=== PATIENT | male | born 1980 | race American Indian/Alaskan Native ===

== ENCOUNTER 2017-03-29 02:07 | Emergency (ER) | payer OTHER ==
[2017-03-29 02:19] VITALS: O2SAT 97
--- NOTE | 2017-03-29 02:47 | C.PDOC ---
History Of Present Illness Patient is a 36 y/o male brought to the ED by ambulance after being found sleeping outside. Patient admits to alcohol use today. Patient complaints of chronic left ankle pain, and states he [place] [facility] [place] Otherwise, denies any injury, trauma, weakness, numbness , or any other physical complaints at this time. Time Seen by Provider: 03/29/17 02:25 Chief Complaint (Nursing): Substance Abuse History Per: Patient History/Exam Limitations: no limitations Current Symptoms Are (Timing): Still Present Recent travel outside of the [place]: No Additional History Per: Patient, EMS Past Medical History Reviewed: Historical Data, Nursing Documentation, Vital Signs Vital Signs: Last Vital Signs Temp 98.3 F 03/29/17 05:34 Pulse 70 03/29/17 05:34 Resp 70 H 03/29/17 05:34 BP 139/83 03/29/17 05:34 Pulse Ox 97 03/29/17 05:34 Family History: States: Unknown Family Hx - Social History Hx Alcohol Use: Yes Hx Substance Use: No - Immunization History Hx Tetanus Toxoid Vaccination: No Hx Influenza Vaccination: No Hx Pneumococcal Vaccination: No Review Of Systems Except As Marked, All Systems Reviewed And Found Negative. Constitutional: Negative for: Fever, Chills Musculoskeletal: Positive for: Foot Pain (left ankle pain) Neurological: Negative for: Weakness, Numbness Psych: Negative for: Suicidal ideation Physical Exam - Physical Exam Appears: Non-toxic, No Acute Distress, Unkempt, Other (no signs of injury) Skin: Warm, Dry, Other (multiple scars to left ankle) Head: Atraumatic, Normacephalic Eye(s): bilateral: Normal Inspection Neck: Normal ROM, Supple Chest: Symmetrical Cardiovascular: Rhythm Regular, No Murmur Respiratory: Normal Breath Sounds, No Rales, No Rhonchi, No Wheezing Extremity: Normal ROM, Tenderness (mild tenderness to left ankle upon light palpation), Capillary Refill (< 2 sec.), No Deformity, No Swelling Pulses: Left Dorsalis Pedis: Normal, Right Dorsalis Pedis: Normal Neurological/Psych: Oriented x3, Normal Speech, Normal Cognition, Normal Motor, Normal Sensation ED Course And Treatment O2 Sat by Pulse Oximetry: 97 (on RA) Pulse Ox Interpretation: Normal Progress Note: Patient requesting percocet for pain. On reassessment, patient is resting comfortably, no acute distress. Patient reports mild improvement of pain. Patient ambulatory with steady gait Medical Decision Making Medical Decision Making: PRAVINRx Reviewed 01/30/2017 OXYCODONE-ACETAMINOPHEN 5-325 16 10/25/2016 OXYCODONE-ACETAMINOPHEN 5-325 20 10/19/2016 OXYCODONE-ACETAMINOPHEN 5-325 45 09/28/2016 OXYCODONE-ACETAMINOPHEN 5-325 45 Disposition Counseled Patient/Family Regarding: Diagnosis, Need For Followup - Disposition Referrals: Migdalia Archer MD [Non-Staff] - Disposition: HOME/ ROUTINE Disposition Time: 06:00 Condition: STABLE Instructions: Chronic Pain (DC) - POA Present On Arrival: None - Clinical Impression Clinical Impression: Chronic leg pain, Alcohol intoxication - PA / DESIGN SUPERVISOR / Resident Statement MD/DO has reviewed & agrees with the documentation as recorded. - Scribe Statement The provider has reviewed the documentation as recorded by the Scribe Shai Torres All medical record entries made by the Scribe were at my direction and personally dictated by me. I have reviewed the chart and agree that the record accurately reflects my personal performance of the history, physical exam, medical decision making, and the department course for this patient. I have also personally directed, reviewed, and agree with the discharge instructions and disposition.
[2017-03-29] MEDS ORDERED: Oxycodone/Acetaminophen 5/325 mg Tab PO STA (02:49)
[2017-03-29] MEDS ORDERED: Oxycodone/Acetaminophen 5/325 mg Tab ONE (02:57)
[2017-03-29 05:36] VITALS: BP 139/83; PULSE 70; RESP 70; TEMP 98.3
== END 2017-03-29 06:07 | disposition home or self-care (01) ==
LOC: C.ER 02:07
DX: G89.29 Other chronic pain (principal); M25.572 Pain in left ankle and joints of left foot; F10.129 Alcohol abuse with intoxication, unspecified; Y90.9 Presence of alcohol in blood, level not specified

== ENCOUNTER 2017-05-04 01:42 | Emergency (ER) | payer OTHER ==
--- NOTE | 2017-05-04 02:09 | C.PDOC ---
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 Patient was found sleeping on a bench near the [place]. Admits to drinking alcohol and taking PCP. Denies suicidal, homicidal ideation, or any somatic complaints. Time Seen by Provider: 05/04/17 02:08 Chief Complaint (Nursing): Substance Abuse History Per: Patient History/Exam Limitations: no limitations Onset/Duration Of Symptoms: Hrs Current Symptoms Are (Timing): Still Present Suicide/Self Injury Attempted (Context): None Modifying Factor(s): Alcohol, Other (PCP) Severity: Mild Associated Symptoms: denies: Suicidal Thoughts, Suicidal Plan Involuntary Hold By: None Recent travel outside of the [place]: No Additional History Per: Patient Past Medical History Reviewed: Historical Data, Nursing Documentation, Vital Signs Vital Signs: Last Vital Signs Temp 98.4 F 05/04/17 05:30 Pulse 75 05/04/17 05:24 Resp 18 05/04/17 05:24 BP 136/79 05/04/17 05:24 Pulse Ox 98 05/04/17 05:24 Family History: States: Unknown Family Hx - Social History Hx Alcohol Use: Yes Hx Substance Use: No - Immunization History Hx Tetanus Toxoid Vaccination: No Hx Influenza Vaccination: No Hx Pneumococcal Vaccination: No Review Of Systems Constitutional: Positive for: Other (Alcohol intoxication, PCP use). Negative for: Fever, Chills Eyes: Negative for: Vision Change ENT: Negative for: Throat Pain Cardiovascular: Negative for: Chest Pain, Palpitations Respiratory: Negative for: Shortness of Breath Gastrointestinal: Negative for: Abdominal Pain Genitourinary: Negative for: Dysuria Skin: Negative for: Rash Neurological: Negative for: Weakness, Numbness Psych: Negative for: Suicidal ideation, Other (Homicidal ideation) Physical Exam - Physical Exam Appears: Non-toxic, No Acute Distress, Other (Alcohol intoxicated, (+) AOB) Skin: Warm, Dry Head: Normacephalic Oral Mucosa: Moist Throat: No Erythema, No Exudate Neck: Supple Cardiovascular: Rhythm Regular Respiratory: No Rales, No Rhonchi, No Wheezing Gastrointestinal/Abdominal: Soft, No Tenderness Back: No CVA Tenderness Neurological/Psych: Oriented x3, No Normal Speech (SLurred) Gait: Unsteady ED Course And Treatment O2 Sat by Pulse Oximetry: 98 (RA) Pulse Ox Interpretation: Normal Reevaluation Time: 05:34 Reassessment Condition: Improved ED OBSERVATION Discharge: Yes Date of observation admission: 05/04/17 Time of observation admission: 02:16 - Observation admission statement Patient is being placed in observation because:: Acute alcohol intoxication - Goals of Observation Goals of observation are:: Sobriety Disposition Counseled Patient/Family Regarding: Studies Performed, Diagnosis, Need For Followup - Disposition Referrals: [facility] [Outside] Disposition: HOME/ ROUTINE Disposition Time: 02:09 Condition: FAIR Instructions: Alcohol Intoxication (DC) Forms: [employer] (Croatian) - Clinical Impression Clinical Impression: Drug abuse, Alcohol intoxication - Scribe Statement The provider has reviewed the documentation as recorded by the Scribe Blu moreno All medical record entries made by the Scribe were at my direction and personally dictated by me. I have reviewed the chart and agree that the record accurately reflects my personal performance of the history, physical exam, medical decision making, and the department course for this patient. I have also personally directed, reviewed, and agree with the discharge instructions and disposition.
[2017-05-04 03:24] VITALS: RESP 18
[2017-05-04 05:25] VITALS: BP 136/79; PULSE 75; O2SAT 98
[2017-05-04 05:31] VITALS: TEMP 98.4
== END 2017-05-04 05:31 | disposition home or self-care (01) ==
LOC: C.ER 01:42
DX: F10.120 Alcohol abuse with intoxication, uncomplicated (principal); F19.10 Other psychoactive substance abuse, uncomplicated; Y90.9 Presence of alcohol in blood, level not specified

== ENCOUNTER 2017-05-13 01:10 | Observation (INO) | payer OTHER ==
--- NOTE | 2017-05-13 01:38 | C.PDOC ---
History Of Present Illness 31 year old male was brought to the ED by EMS after being found lying on the ground with a bottle of liquor next to him. HPI is limited due to patient's refusal to answer questions. Time Seen by Provider: 05/13/17 01:28 Chief Complaint (Nursing): Substance Abuse History Per: EMS History/Exam Limitations: other (patient refusing to answer questions ) Suicide/Self Injury Attempted (Context): None Modifying Factor(s): Alcohol Involuntary Hold By: None Past Medical History Reviewed: Historical Data, Nursing Documentation, Vital Signs Vital Signs: Last Vital Signs Temp 97.1 F L 05/13/17 06:29 Pulse 86 05/13/17 06:29 Resp 20 05/13/17 06:29 BP 158/72 H 05/13/17 06:29 Pulse Ox 98 05/13/17 06:29 Family History: States: Unknown Family Hx - Social History Hx Alcohol Use: Yes Hx Substance Use: No (unknown, pt refuses to answer) Review Of Systems Review Of Systems: ROS cannot be obtained secondary to pt's inabilty to answer questions. (patient refusing to answer questions) Physical Exam - Physical Exam Appears: Non-toxic, No Acute Distress, Unkempt Skin: Warm, Dry Head: Atraumatic Eye(s): bilateral: Normal Inspection Oral Mucosa: Moist Neck: Supple Chest: Symmetrical, No Deformity Cardiovascular: Rhythm Regular Respiratory: Normal Breath Sounds, No Rales, No Rhonchi, No Wheezing Gastrointestinal/Abdominal: Soft, No Tenderness, No Distention, No Guarding, No Rebound Neurological/Psych: Normal Speech ED Course And Treatment O2 Sat by Pulse Oximetry: 100 (room air ) ED OBSERVATION Discharge: Yes Date of observation admission: 05/13/17 Time of observation admission: 01:36 - Observation admission statement Patient is being placed in observation because:: patient is intoxicated. - Goals of Observation Goals of observation are:: sobriety. Disposition - Disposition Disposition: HOME/ ROUTINE Disposition Time: 05:45 Condition: IMPROVED - Clinical Impression Clinical Impression: Alcohol abuse - Scribe Statement The provider has reviewed the documentation as recorded by the Scribe Gisselle Sow All medical record entries made by the Scribe were at my direction and personally dictated by me. I have reviewed the chart and agree that the record accurately reflects my personal performance of the history, physical exam, medical decision making, and the department course for this patient. I have also personally directed, reviewed, and agree with the discharge instructions and disposition.
[2017-05-13 06:30] VITALS: BP 158/72; PULSE 86; RESP 20; TEMP 97.1
[2017-05-13 06:41] VITALS: O2SAT 100
== END 2017-05-13 06:24 | disposition home or self-care (01) ==
LOC: C.ER 01:10 → MERGE 01:36 → EDBD 01:36 → C.9OBSV 01:36
PROVIDERS: ADMIT Emergency Medicine; ATTEND Emergency Medicine
DX: F10.129 Alcohol abuse with intoxication, unspecified (principal)

== ENCOUNTER 2017-06-11 01:10 | Emergency (ER) | payer OTHER ==
[2017-06-11 01:33] VITALS: BP 156/97
--- NOTE | 2017-06-11 01:55 | C.PDOC ---
History Of Present Illness 36 year old male, who is a known local homeless alcoholic, presents to the ER with acute ETOH intoxication and no significant complaint. Denies physical complaints at this time. Time Seen by Provider: 06/11/17 01:53 Chief Complaint (Nursing): Lower Extremity Problem/Injury History Per: Patient History/Exam Limitations: no limitations Onset/Duration Of Symptoms: Hrs Current Symptoms Are (Timing): Still Present Recent travel outside of the [place]: No Past Medical History Reviewed: Historical Data, Nursing Documentation, Vital Signs Vital Signs: Last Vital Signs Temp 98 F 06/11/17 02:00 Pulse 72 06/11/17 02:00 Resp 16 06/11/17 02:00 BP 156/97 H 06/11/17 02:00 Pulse Ox 100 06/11/17 02:00 - Medical History PMH: No Chronic Diseases Surgical History: No Surg Hx Family History: States: Unknown Family Hx - Social History Hx Alcohol Use: Yes Hx Substance Use: No - Immunization History Hx Tetanus Toxoid Vaccination: No Hx Influenza Vaccination: No Hx Pneumococcal Vaccination: No Review Of Systems Constitutional: Negative for: Fever, Chills Gastrointestinal: Negative for: Nausea, Vomiting, Diarrhea Physical Exam - Physical Exam Appears: Non-toxic, No Acute Distress, Other (ETOH on breath, disheveled, foul smelling, argumentative) Skin: Normal Color, Warm, Dry Head: Atraumatic, Normacephalic Oral Mucosa: Moist Chest: Symmetrical, No Tenderness Cardiovascular: Rhythm Regular, No Murmur Respiratory: Normal Breath Sounds, No Rales, No Rhonchi, No Wheezing Gastrointestinal/Abdominal: Soft, No Tenderness Extremity: Normal ROM (x4) Neurological/Psych: Oriented x3, Normal Speech, Normal Cognition Gait: Steady ED Course And Treatment O2 Sat by Pulse Oximetry: 98 (Room air) Pulse Ox Interpretation: Normal Medical Decision Making Medical Decision Making: homeless malingering no acute issues benign exam Disposition Doctor Will See Patient In The: Office Counseled Patient/Family Regarding: Studies Performed, Diagnosis - Disposition Referrals: Alcoholics Anonymous [Outside] [facility] [Outside] [facility] [Outside] [facility] [Outside] [facility] [Outside] Disposition: HOME/ ROUTINE Disposition Time: 01:54 Condition: GOOD Additional Instructions: seek nightly fpc placement. Forms: General Discharge Instructions, [facility] (Burmese) - Clinical Impression Clinical Impression: Alcohol intoxication, Homeless - Scribe Statement The provider has reviewed the documentation as recorded by the Scribe Devin Balbuena All medical record entries made by the Jenniferibe were at my direction and personally dictated by me. I have reviewed the chart and agree that the record accurately reflects my personal performance of the history, physical exam, medical decision making, and the department course for this patient. I have also personally directed, reviewed, and agree with the discharge instructions and disposition.
[2017-06-11 02:33] VITALS: PULSE 72; RESP 16; TEMP 98
[2017-06-11 05:23] VITALS: O2SAT 98
== END 2017-06-11 02:00 | disposition home or self-care (01) ==
LOC: C.ER 01:10
DX: F10.129 Alcohol abuse with intoxication, unspecified (principal); Y90.9 Presence of alcohol in blood, level not specified; Z59.0 Homelessness

== ENCOUNTER 2017-10-22 20:43 | Emergency (ER) | payer MEDICAID, OTHER ==
[2017-10-22 22:21] LABS: BASO % 0.5 % (0.0-2.0); EOS # 0.1 K/uL (0.0-0.7); EOS % 0.9 % (0.0-4.0); HEMOGLOBIN 13.5 g/dL (12.0-18.0); LYMPH % 20.3 % (20.0-40.0); MEAN CELL VOLUME 87.3 fL (80.0-94.0); MEAN CORPUSCULAR HEMOGLOBIN 29.5 pg (27.0-31.0); MEAN CORPUSCULAR HGB CONC 33.7 g/dL (33.0-37.0); MEAN PLATELET VOLUME 7.5 fL (7.2-11.7); MONO # 0.9 K/uL (0.0-0.8); MONO % 9.3 % (0.0-10.0); NEUT # 6.6 K/uL (1.8-7.0); NRBC % 0.1 % (0.0-2.0); RBC 4.56 Mil/uL (4.40-5.90); RED CELL DISTRIBUTION WIDTH 15.9 % (11.5-14.5); WHITE BLOOD COUNT 9.6 K/uL (4.8-10.8)
[2017-10-22 22:42] LABS: ALB/GLOB RATIO 1.1 (1.0-2.1); ALBUMIN 4.4 g/dL (3.5-5.0); ALT/SGPT 26 U/L (21-72); AST/SGOT 28 U/L (17-59); BLOOD UREA NITROGEN 11 mg/dL (9-20); CALCIUM 9.3 mg/dl (8.6-10.4); GFR AFRICAN-AMERICAN > 60; GFR NON-AFRICAN AMERICAN > 60
[2017-10-22 23:10] LABS: URINE BACTERIA RARE (<OCC); URINE BILIRUBIN NEGATIVE (NEGATIVE); URINE CLARITY Clear (Clear); URINE COLOR Straw (YELLOW); URINE GLUCOSE (UA) NORMAL (Normal); URINE LEUKOCYTE ESTERASE NEG Leu/uL (Negative); URINE NITRATE NEGATIVE (NEGATIVE); URINE PROTEIN NEGATIVE (NEGATIVE); URINE UROBILINOGEN NORMAL mg/dL (0.2-1.0)
[2017-10-22 23:11] LABS: URINE BLOOD NEGATIVE (NEGATIVE)
[2017-10-22 23:41] LABS: BARBITURATES, UR NEGATIVE (NEGATIVE); BENZODIAZEPINES, UR NEGATIVE (NEGATIVE); OPIATES, UR NEGATIVE (NEGATIVE)
--- NOTE | 2017-10-22 23:46 | C.PDOC ---
History Of Present Illness Pt was BIBEMS due to intoxication. Pt was found on the street by a [place] police not responding properly. Time Seen by Provider: 10/22/17 21:22 Chief Complaint (Nursing): Substance Abuse History Per: Patient, EMS, Other (Police) History/Exam Limitations: intoxication Onset/Duration Of Symptoms: Unknown (tonight) Current Symptoms Are (Timing): Better Suicide/Self Injury Attempted (Context): None Modifying Factor(s): Other (PCP) Severity: Moderate Associated Symptoms: denies: Suicidal Thoughts, Suicidal Plan Additional History Per: Prior Records Past Medical History Reviewed: Historical Data, Nursing Documentation, Vital Signs Vital Signs: Last Vital Signs Temp 98.8 F 10/23/17 00:12 Pulse 78 10/23/17 00:12 Resp 20 10/23/17 00:12 BP 182/110 H 10/23/17 00:12 Pulse Ox 100 10/23/17 00:12 - Medical History PMH: No Chronic Diseases Family History: States: Unknown Family Hx - Social History Hx Alcohol Use: Yes Hx Substance Use: Yes (PCP) - Immunization History Hx Tetanus Toxoid Vaccination: No Hx Influenza Vaccination: No Hx Pneumococcal Vaccination: No Review Of Systems Constitutional: Negative for: Fever Cardiovascular: Negative for: Chest Pain Respiratory: Negative for: Shortness of Breath, Hemoptysis Gastrointestinal: Negative for: Vomiting, Abdominal Pain Musculoskeletal: Negative for: Neck Pain Skin: Negative for: Rash Neurological: Negative for: Weakness, Numbness, Seizures, Headache Physical Exam - Physical Exam Appears: Non-toxic, No Acute Distress Skin: Normal Color, Warm, Dry Head: Atraumatic, Normacephalic Eye(s): bilateral: PERRL, Other (Vertical nystagmus) Neck: Normal ROM, No Midline Cervical Tenderness, No Step Off Deformity, Supple Chest: Symmetrical, No Deformity Cardiovascular: Rhythm Regular Respiratory: Normal Breath Sounds, No Accessory Muscle Use Gastrointestinal/Abdominal: Soft, No Tenderness Back: No Vertebral Tenderness Extremity: Normal ROM Neurological/Psych: Oriented x3, Normal Motor, Normal Sensation ED Course And Treatment - Laboratory Results Result Diagrams: 10/22/17 22:13 10/22/17 22:13 Lab Interpretation: No Acute Changes Interpretation Of Abnormal: Positive for PCP ECG: Interpreted By Me, Viewed By Me ECG Rhythm: Sinus Rhythm, Nonspecific Changes ECG Interpretation: No Acute Changes Rate From EC O2 Sat by Pulse Oximetry: 98 Pulse Ox Interpretation: Normal - Radiology CXR: Interpreted by Me, Viewed By Me CXR Interpretation: Yes: No Acute Disease Reassessment Condition: Improved Disposition Counseled Patient/Family Regarding: Studies Performed, Diagnosis, Need For Followup - Disposition Referrals: [facility] [Outside] Disposition: RELEASED IN POLICE CUSTODY Disposition Time: 00:16 Condition: IMPROVED Additional Instructions: Patient is medically and psychiatrically cleared for incarceration. Avoid illicit drugs. Follow up in the clinic. Return to the ER if you develop worsening of symptoms or if you have any other concerns. Instructions: Polysubstance Abuse (ED) - Clinical Impression Clinical Impression: PCP (phencyclidine) abuse
[2017-10-23 00:08] LABS: PHENCYCLIDINE, UR POSITIVE (NEGATIVE)
[2017-10-23 00:12] VITALS: BP 182/110; PULSE 78; RESP 20; TEMP 98.8
[2017-10-23 00:16] VITALS: O2SAT 98
--- NOTE | 2017-10-23 08:28 | RAD ---
Chest x-ray single frontal view History: Detox Comparison: None available. Findings: No focal infiltrate or effusion. Tortuous aorta. Heart size within normal limits. Impression: No focal infiltrate or effusion.
--- NOTE | 2017-10-23 11:56 | CARD ---
APPROVED REPORT EKG Measurement Heart [id number] <Conclusion> Normal sinus rhythm Normal ECG
== END 2017-10-23 00:48 ==
LOC: C.ER 20:43
DX: F16.10 Hallucinogen abuse, uncomplicated (principal); Z65.3 Problems related to other legal circumstances

== ENCOUNTER 2018-06-09 02:16 | Emergency (ER) | payer MEDICAID | END 2018-06-09 02:21 | disposition left against medical advice (07) | LOC: C.ER 02:16 | DX: Z02.89 Encounter for other administrative examinations (principal) ==

== ENCOUNTER 2018-06-17 06:21 | Emergency (ER) | payer MEDICAID ==
[2018-06-17] MEDS ORDERED: Naproxen 550 mg Tab PO STA (07:37)
[2018-06-17] MEDS ORDERED: Naproxen 550 mg Tab PO ONE (08:11)
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
[2018-06-17 08:50] VITALS: BP 133/85; PULSE 75; RESP 18; TEMP 97.9
--- NOTE | 2018-06-17 13:50 | RAD ---
Date of service: 06/17/2018 PROCEDURE: Radiographs of the Chest and Right Ribs. HISTORY: right sided rib injury, pain COMPARISON: 10/22/2017. TECHNIQUE: Frontal radiograph of the chest and multiple oblique radiographs of the right ribs were obtained. FINDINGS: RIGHT RIBS: There are acute nondisplaced fractures in the right lateral 9th and 10th ribs. LUNGS: The lungs are well inflated and clear. PLEURA: No pneumothorax or pleural fluid. CARDIOVASCULAR: Normal sized heart. No pulmonary vascular congestion. OTHER FINDINGS: None. IMPRESSION: Acute nondisplaced fractures in the right lateral 9th and 10th ribs. No pneumothorax or hemothorax. Clear lungs.
[2018-06-20 02:21] VITALS: O2SAT 98
== END 2018-06-17 09:00 | disposition home or self-care (01) ==
LOC: C.ER 06:21
DX: S22.41XA Multiple fractures of ribs, right side, initial encounter for closed fracture (principal); Y09 Assault by unspecified means

== ENCOUNTER 2018-07-12 23:14 | Emergency (ER) | payer MEDICAID, OTHER ==
--- NOTE | 2018-07-13 00:50 | C.PDOC ---
History Of Present Illness 37 year old male presents to the emergency department by EMS. According to EMS, patient has rib pain. HPI unobtainable. Time Seen by Provider: 07/12/18 23:39 Chief Complaint (Nursing): Substance Abuse History Per: EMS History/Exam Limitations: other (patient sleeping) Past Medical History Reviewed: Historical Data, Nursing Documentation, Vital Signs Vital Signs: Last Vital Signs Temp 98.4 F 07/12/18 23:26 Pulse 87 07/12/18 23:26 Resp 18 07/12/18 23:26 BP 122/80 07/12/18 23:26 Pulse Ox 96 07/12/18 23:26 - Medical History PMH: HTN Denies: Diabetes, Hepatitis, HIV, Seizures, Sexually Transmitted Disease Family History: States: Unknown Family Hx - Social History Hx Alcohol Use: Yes Hx Substance Use: Yes (PCP) - Immunization History Hx Tetanus Toxoid Vaccination: No Hx Influenza Vaccination: No Hx Pneumococcal Vaccination: No Review Of Systems Review Of Systems: ROS cannot be obtained secondary to pt's inabilty to answer questions. Physical Exam - Physical Exam Additional Physical Exam Comments: Constitutional: No acute distress. Sleeping soundly. Snoring. Head: Normocephalic. Atraumatic. Eyes: PERRL. ENT: Moist mucous membranes. Neck: Supple. Cardiovascular: Regular rate. Radial pulse 2+ bilaterally. Chest: No tenderness. Respiratory: Clear to auscultation bilaterally. GI: Soft. Nontender. Nondistended. Back: No CVA tenderness. Musculoskeletal: No tenderness or swelling of extremities. Skin: No rash. Neurologic: No focal deficit. ED Course And Treatment O2 Sat by Pulse Oximetry: 96 (RA) Pulse Ox Interpretation: Normal Medical Decision Making Medical Decision Making: Plan: Alcohol Serum Previous charts reviewed, which showed that patient complains of rib pain at every ED visit. Patient had an XR performed one month ago which showed non- displaced rib fractures. Patient will be observed for sobriety. Disposition - Disposition Disposition: HOME/ ROUTINE Disposition Time: 02:01 Condition: STABLE Instructions: Alcohol Abuse and Alcoholism (DC), Rib Fracture (DC) Forms: [employer] (Uzbek) - Clinical Impression Clinical Impression: Alcohol intoxication, Rib fracture - Scribe Statement The provider has reviewed the documentation as recorded by the Scribe (Ranjit Prince) Provider Attestation: All medical record entries made by the Scribe were at my direction and personally dictated by me. I have reviewed the chart and agree that the record accurately reflects my personal performance of the history, physical exam, medical decision making, and the department course for this patient. I have also personally directed, reviewed, and agree with the discharge instructions and disposition.
[2018-07-13 02:32] VITALS: O2SAT 98
[2018-07-13 05:52] VITALS: BP 146/84; PULSE 84; RESP 16; TEMP 98.4
== END 2018-07-13 05:50 | disposition home or self-care (01) ==
LOC: C.ER 23:14
DX: F10.129 Alcohol abuse with intoxication, unspecified (principal); S22.39XA Fracture of one rib, unspecified side, initial encounter for closed fracture; X58.XXXA Exposure to other specified factors, initial encounter; I10 Essential (primary) hypertension

== ENCOUNTER 2018-07-30 05:26 | Emergency (ER) | payer MEDICAID ==
[2018-07-30 05:27] VITALS: BMI 27.1
[2018-07-30 05:37] VITALS: BP 148/98; PULSE 74; RESP 20; TEMP 98.7; O2SAT 98
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
== END 2018-07-30 06:45 | disposition home or self-care (01) ==
LOC: C.ER 05:26
DX: Z87.81 Personal history of (healed) traumatic fracture (principal); I10 Essential (primary) hypertension

== ENCOUNTER 2018-08-24 14:40 | Inpatient (IN) | payer MEDICAID ==
[2018-08-24 14:40] VITALS: BMI 30.8
[2018-08-24] MEDS ORDERED: Sodium Chloride 0.9% 1,000 ML IV ONE (17:07)
[2018-08-24] MEDS ORDERED: Sodium Chloride 0.9% 1,000 ML ONE (17:28)
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
--- NOTE | 2018-08-24 17:55 | RAD ---
Date of service: 08/24/2018 HISTORY: Sepsis Patient COMPARISON: 06/17/2018 FINDINGS: LUNGS: The lungs are well inflated. There is moderate pulmonary venous congestion. No focal consolidation. PLEURA: No pleural effusions or pneumothorax. CARDIOVASCULAR: The heart is normal in size. No aortic atherosclerotic calcification present. OSSEOUS STRUCTURES: Within normal limits for the patient's age. VISUALIZED UPPER ABDOMEN: Normal. OTHER FINDINGS: None. IMPRESSION: No active pulmonary disease.
[2018-08-24 18:12] LABS: BASO % 0.3 % (0.0-2.0); EOS # 0.2 K/uL (0.0-0.7); EOS % 1.8 % (0.0-4.0); LYMPH # 1.7 K/uL (1.0-4.3); LYMPH % 20.2 % (20.0-40.0); MEAN CORPUSCULAR HEMOGLOBIN 24.2 pg (27.0-31.0); MEAN CORPUSCULAR HGB CONC 31.1 g/dL (33.0-37.0); MEAN PLATELET VOLUME 7.1 fL (7.2-11.7); MONO # 1.4 K/uL (0.0-0.8); MONO % 15.6 % (0.0-10.0); NEUT # 5.4 K/uL (1.8-7.0); NEUT % 62.1 % (50.0-75.0); NRBC % 0.1 % (0.0-2.0); RBC 3.11 Mil/uL (4.40-5.90); RED CELL DISTRIBUTION WIDTH 15.8 % (11.5-14.5); WHITE BLOOD COUNT 8.7 K/uL (4.8-10.8)
[2018-08-24 18:20] LABS: HEMOGLOBIN 7.5 g/dL (12.0-18.0); MEAN CELL VOLUME 77.8 fL (80.0-94.0)
[2018-08-24 18:29] LABS: BARBITURATES, UR NEGATIVE (NEGATIVE); BENZODIAZEPINES, UR NEGATIVE (NEGATIVE); OPIATES, UR NEGATIVE (NEGATIVE)
[2018-08-24 18:40] LABS: PHENCYCLIDINE, UR POSITIVE (NEGATIVE)
[2018-08-24 18:41] LABS: URINE BACTERIA RARE (<OCC); URINE BILIRUBIN NEGATIVE (NEGATIVE); URINE BLOOD 1+ (NEGATIVE); URINE CLARITY Clear (Clear); URINE COLOR Yellow (YELLOW); URINE GLUCOSE (UA) NORMAL (Normal); URINE LEUKOCYTE ESTERASE NEG Leu/uL (Negative); URINE PROTEIN 1+ mg/dL (NEGATIVE); URINE UROBILINOGEN NORMAL mg/dL (0.2-1.0)
[2018-08-24 18:43] LABS: VENOUS BLOOD GAS PCO2 47 mmHg (40-60); VENOUS BLOOD GAS PO2 44 mm/Hg (30-55); VENOUS BLOOD PH 7.38 (7.32-7.43)
[2018-08-24] MEDS ORDERED: Bacitracin 500 Units/gm Oint Foilpak UD TOP ONE (18:45)
[2018-08-24] MEDS ORDERED: Bacitracin 500 Units/gm Oint Foilpak UD ONE (18:48)
[2018-08-24 19:19] LABS: HEMOGLOBIN 6.8 g/dL (12.0-18.0); MEAN CELL VOLUME 77.6 fL (80.0-94.0); MEAN CORPUSCULAR HEMOGLOBIN 24.3 pg (27.0-31.0); MEAN CORPUSCULAR HGB CONC 31.3 g/dL (33.0-37.0); MEAN PLATELET VOLUME 6.9 fL (7.2-11.7); RBC 2.81 Mil/uL (4.40-5.90); RED CELL DISTRIBUTION WIDTH 15.7 % (11.5-14.5); WHITE BLOOD COUNT 7.2 K/uL (4.8-10.8)
[2018-08-24 19:31] LABS: ALB/GLOB RATIO 0.8 (1.0-2.1); ALBUMIN 2.8 g/dL (3.5-5.0); ALT/SGPT 23 U/L (21-72); AST/SGOT 20 U/L (17-59); BLOOD UREA NITROGEN 10 mg/dL (9-20); CALCIUM 7.7 mg/dl (8.6-10.4); GFR NON-AFRICAN AMERICAN > 60
[2018-08-24 20:47] LABS: BASO % 0.2 % (0.0-2.0); EOS # 0.1 K/uL (0.0-0.7); EOS % 2.1 % (0.0-4.0); HEMOGLOBIN 6.8 g/dL (12.0-18.0); LYMPH # 1.9 K/uL (1.0-4.3); LYMPH % 26.5 % (20.0-40.0); MEAN CELL VOLUME 77.6 fL (80.0-94.0); MEAN CORPUSCULAR HEMOGLOBIN 24.5 pg (27.0-31.0); MEAN CORPUSCULAR HGB CONC 31.5 g/dL (33.0-37.0); MEAN PLATELET VOLUME 6.3 fL (7.2-11.7); MONO # 1.2 K/uL (0.0-0.8); MONO % 16.7 % (0.0-10.0); NEUT # 3.8 K/uL (1.8-7.0); NEUT % 54.5 % (50.0-75.0); NRBC % 0.1 % (0.0-2.0); RBC 2.79 Mil/uL (4.40-5.90); RED CELL DISTRIBUTION WIDTH 15.7 % (11.5-14.5); WHITE BLOOD COUNT 7.1 K/uL (4.8-10.8)
[2018-08-24] MEDS ORDERED: Azithromycin 500 MG in Sodium Chloride 0.9% 250 ML IV STA (21:04)
[2018-08-24] MEDS ORDERED: Piperacillin/Tazobact 3.375 gm 100 ML IV STA (21:06)
[2018-08-24] MEDS ORDERED: Azithromycin 500mg/250ML NS 500 MG/250 ML BAG IVPB ONE (21:11)
[2018-08-24] MEDS ORDERED: Piperacillin/Tazobact 3.375 gm 100 ML IVPB ONE (21:11)
[2018-08-24] MEDS ORDERED: guaiFENesin 200 mg/10 ml Syrup UD PO PRN (22:38)
[2018-08-25] MEDS: Albuterol-Ipratrop 3 mg / 0.5 (3 ml) UD INH SCH ×4 (01:50→19:37)
[2018-08-25] MEDS: Piperacill/Tazo 3.375gm in Dex 3.375 GM/50 ML BAG IVPB SCH ×4 (03:23→21:32)
--- NOTE | 2018-08-25 08:08 | CT ---
Date of service: 08/24/2018 PROCEDURE: CT HEAD WITHOUT CONTRAST. HISTORY: very drowsy COMPARISON: None available. TECHNIQUE: Axial computed tomography images were obtained through the head/brain without intravenous contrast. Radiation dose: Total exam DLP = 1154.84 mGy-cm. This CT exam was performed using one or more of the following dose reduction techniques: Automated exposure control, adjustment of the mA and/or kV according to patient size, and/or use of iterative reconstruction technique. FINDINGS: HEMORRHAGE: No intracranial hemorrhage. BRAIN: Lockett-white matter differentiation is preserved. There is no mass, mass effect or abnormal extra-axial fluid collection. There is no territorial infarction. The midline sagittal structures are normal. VENTRICLES: The ventricles are normal in size, shape and configuration. CALVARIUM: There is no calvarial fracture. Large right temporoparietal extracranial soft tissue swelling. PARANASAL SINUSES: Predominantly clear. MASTOID AIR CELLS: Predominantly clear. OTHER FINDINGS: None. IMPRESSION: No acute intracranial abnormality. Large right temporoparietal extracranial soft tissue swelling. A preliminary report was provided by [employer].
--- NOTE | 2018-08-25 09:59 | CT ---
Date of service: 08/24/2018 PROCEDURE: CT Abdomen and Pelvis without intravenous contrast HISTORY: pain, anemia COMPARISON: None. TECHNIQUE: CT scan of the abdomen and pelvis was performed without administration of intravenous contrast. Oral contrast was not administered. Coronal and sagittal reformatted images were obtained. . Radiation dose: Total exam DLP = 911.6 mGy-cm. This CT exam was performed using one or more of the following dose reduction techniques: Automated exposure control, adjustment of the mA and/or kV according to patient size, and/or use of iterative reconstruction technique. FINDINGS: LOWER THORAX: There is subsegmental atelectasis in the lower lobes and trace effusions, worse on the right. LIVER: Normal in size. No intrahepatic ductal dilatation. GALLBLADDER AND BILE DUCTS: No calcified gallstones. No biliary dilatation PANCREAS: Normal in size. No ductal dilatation. SPLEEN: Normal in size. ADRENALS: Normal in size. No discrete nodule. KIDNEYS AND URETERS: Normal in size without nephrolithiasis. No hydronephrosis. VASCULATURE: No aortic aneurysm. No aortic atherosclerotic calcification or mural plaque present. BOWEL: Evaluation of the bowel is limited in the absence of intravenous contrast. The small bowel loops are normal in caliber. There is apparent mild circumferential mural thickening in the descending colon. No bowel obstruction. APPENDIX: Normal appendix. PERITONEUM: No free fluid. No free air. LYMPH NODES: No enlarged lymph nodes. BLADDER: Well distended and grossly normal in appearance. REPRODUCTIVE: The prostate gland is normal in size BONES: No acute fracture. OTHER FINDINGS: None. IMPRESSION: Evaluation of the bowel is limited in the absence of oral contrast. Allowing for this, apparent mild circumferential mural thickening in the descending colon is nonspecific and could be related to underdistention however nonspecific acute infectious/inflammatory colitis is also a differential consideration. Clinical follow-up is advised. A preliminary report was provided by [email or web address]. The study has been tagged to the PA review folder for review of the final report.
[2018-08-25] MEDS ORDERED: Pneumococcal 23-Valent Vaccine IM ONE (10:00)
[2018-08-25] MEDS: Azithromycin 500 MG in Sodium Chloride 0.9% 250 ML IVPB SCH (10:30)
[2018-08-25] MEDS ORDERED: Influenza Vaccine 60 MCG/0.5 ML SYR (3 yr & up) IM ONE (12:15)
--- NOTE | 2018-08-25 20:10 | CP.PCM.HP ---
Past Patient History - Infectious Disease Hx of Infectious Diseases: None - Past Social History Smoking Status: Current Some Days Smoker - CARDIAC Hx Hypertension: Yes - PULMONARY Hx Tuberculosis: No - NEUROLOGICAL Hx Seizures: No - HEMATOLOGICAL/ONCOLOGICAL Hx Human Immunodeficiency Virus (HIV): No - MUSCULOSKELETAL/RHEUMATOLOGICAL Hx Falls: Yes - GENITOURINARY/GYNECOLOGICAL Hx Sexually Transmitted Disorders: No - PSYCHIATRIC Hx Substance Use: Yes (PCP) - SURGICAL HISTORY Hx Orthopedic Surgery: Yes Other/Comment: Both ankles had sx, jaw surgery - ANESTHESIA Hx Anesthesia: Yes Hx Anesthesia Reactions: No Hx Malignant Hyperthermia: No Meds Allergies/Adverse Reactions: Allergies Allergy/AdvReac Type Severity Reaction Status Date / Time No Known Allergies Allergy Verified 08/24/18 14:55 Results - Vital Signs Recent Vital Signs: Last Vital Signs Temp 99 F 08/25/18 17:22 Pulse 103 H 08/25/18 15:30 Resp 20 08/25/18 15:30 BP 141/76 08/25/18 15:30 Pulse Ox 96 08/25/18 15:30 - Labs Result Diagrams: 08/24/18 20:45 08/24/18 19:16 Labs: Laboratory Results - last 24 hr 08/24/18 08/25/18 08/25/18 20:45 17:09 17:16 WBC 7.1 RBC 2.79 L Hgb 6.8 L Hct 21.6 L MCV 77.6 L MCH 24.5 L MCHC 31.5 L RDW 15.7 H Plt Count 361 MPV 6.3 L Neut % (Auto) 54.5 Lymph % (Auto) 26.5 Dale % (Auto) 16.7 H Eos % (Auto) 2.1 Baso % (Auto) 0.2 Neut # (Auto) 3.8 Lymph # (Auto) 1.9 Dale # (Auto) 1.2 H Eos # (Auto) 0.1 Baso # (Auto) 0.0 Ur L.pneumophila Ag Negative Blood Type A POSITIVE Blood Type Confirm A POSITIVE Antibody Screen Negative
[2018-08-26] MEDS: Albuterol-Ipratrop 3 mg / 0.5 (3 ml) UD INH SCH ×4 (01:22→19:56)
[2018-08-26] MEDS: Piperacill/Tazo 3.375gm in Dex 3.375 GM/50 ML BAG IVPB SCH ×4 (03:55→22:17)
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
[2018-08-26] MEDS: Azithromycin 500 MG in Sodium Chloride 0.9% 250 ML IVPB SCH ×2 (10:00→11:48)
[2018-08-26] MEDS ORDERED: Propofol 10 mg/ml Inj (20 ML) ONE (10:51)
[2018-08-26] MEDS ORDERED: Midazolam 2 MG/2 ML VIAL ONE (10:51)
[2018-08-26] MEDS: Lactated Ringer's 500 ML IV SCH ×2 (12:02→20:30)
[2018-08-26] MEDS ORDERED: Peg-Electrolyte Oral Soln 4L (Golytely) PO ONE (13:00)
[2018-08-26 14:22] LABS: BASO % 0.3 % (0.0-2.0); EOS # 0.1 K/uL (0.0-0.7); EOS % 1.6 % (0.0-4.0); HEMOGLOBIN 8.4 g/dL (12.0-18.0); LYMPH # 1.9 K/uL (1.0-4.3); LYMPH % 21.3 % (20.0-40.0); MEAN CELL VOLUME 78.1 fL (80.0-94.0); MEAN CORPUSCULAR HEMOGLOBIN 24.5 pg (27.0-31.0); MEAN CORPUSCULAR HGB CONC 31.4 g/dL (33.0-37.0); MEAN PLATELET VOLUME 6.7 fL (7.2-11.7); MONO # 1.5 K/uL (0.0-0.8); MONO % 16.8 % (0.0-10.0); NEUT # 5.4 K/uL (1.8-7.0); NRBC % 0.1 % (0.0-2.0); RBC 3.41 Mil/uL (4.40-5.90); RED CELL DISTRIBUTION WIDTH 15.5 % (11.5-14.5)
[2018-08-26 14:31] LABS: INR 1.3; PROTHROMBIN TIME 13.7 SECONDS (9.7-12.2)
[2018-08-26 14:42] LABS: IRON 11 ug/dL (49-181)
[2018-08-26 14:47] LABS: ALB/GLOB RATIO 0.9 (1.0-2.1); ALBUMIN 3.4 g/dL (3.5-5.0); ALT/SGPT 26 U/L (21-72); AST/SGOT 20 U/L (17-59); BLOOD UREA NITROGEN 8 mg/dL (9-20); CALCIUM 8.5 mg/dl (8.6-10.4); GFR NON-AFRICAN AMERICAN > 60
[2018-08-26 14:51] LABS: % IRON SATURATION 4 (20-55); TOTAL IRON BINDING CAPACITY 296 ug/dL (250-450)
[2018-08-26] MEDS ORDERED: Bisacodyl 5mg EC Tab PO ONE ×2 (17:00→19:24)
[2018-08-26] MEDS ORDERED: Vancomycin 1 gm/NS 200 ml 1 GM/200 ML BAG IVPB ONE (17:00)
[2018-08-26 19:27] LABS: BARBITURATES, UR NEGATIVE (NEGATIVE); OPIATES, UR NEGATIVE (NEGATIVE)
[2018-08-26 19:31] LABS: BENZODIAZEPINES, UR POSITIVE (NEGATIVE); PHENCYCLIDINE, UR POSITIVE (NEGATIVE)
[2018-08-26] MEDS: Ferric Sodium Gluconat Complex 62.5 mg/5 ml Vial IVPB SCH (19:47)
[2018-08-26] MEDS: Oxycodone/Acetaminophen 5/325 mg Tab PO PRN (20:22)
[2018-08-26] MEDS: Vancomycin 1 gm/NS 200 ml 1 GM/200 ML BAG IVPB SCH (20:29)
--- NOTE | 2018-08-26 22:32 | CP.PCM.PN ---
Subjective - Subjective Subjective: dictated Objective - Vital Signs/Intake and Output Vital Signs (last 24 hours): Temp Pulse Resp BP Pulse Ox 102.7 F H 108 H 18 164/98 H 91 L 08/26/18 16:58 08/26/18 16:25 08/26/18 16:25 08/26/18 16:25 08/26/18 16:25 Intake and Output: 08/26/18 08/27/18 18:59 06:59 Intake Total 200 Balance 200 - Medications Medications: Current Medications Acetaminophen (Tylenol 325mg Tab) 650 mg PO Q6 PRN PRN Reason: Fever >100.4 F Last Admin: 08/26/18 16:58 Dose: 650 mg Albuterol/Ipratropium (Duoneb 3 Mg/0.5 Mg (3 Ml) Ud) 3 ml INH RQ6 MANOLO Last Admin: 08/26/18 19:56 Dose: 3 ml Ferric Sodium Gluconate Complex (Ferrlecit) 125 mg IVPB DAILY MANOLO Stop: 08/31/18 16:16 Last Admin: 08/26/18 19:47 Dose: 125 mg Guaifenesin (Robitussin) 200 mg PO Q4H PRN PRN Reason: Cough and congestion Last Admin: 08/25/18 17:19 Dose: 200 mg Heparin Sodium (Porcine) (Heparin) 5,000 units SC Q8 MANOLO Last Admin: 08/26/18 21:50 Dose: 5,000 units Azithromycin 500 mg/ Sodium (Chloride) 250 mls @ 250 mls/hr IVPB DAILY MANOLO; P rotocol Last Admin: 08/26/18 11:48 Dose: 250 mls/hr Piperacillin Sod/Tazobactam Sod (Zosyn 3.375 Gm Iv Premix) 3.375 gm in 50 mls @ 200 mls/hr IVPB Q6H MANOLO; Protocol Last Admin: 08/26/18 22:17 Dose: 200 mls/hr Lactated Ringer's (Lactated Ringer's 500ml) 500 mls @ 75 mls/hr IV .Q6H40M MANOLO Last Admin: 08/26/18 20:30 Dose: Not Given Vancomycin/Sodium Chloride (Vancomycin 1 Gm/Ns 200 Ml) 1 gm in 200 mls @ 133 mls/hr IVPB Q12H MANOLO; Protocol Stop: 08/31/18 20:01 Last Admin: 08/26/18 20:29 Dose: Not Given Metoclopramide HCl (Reglan) 5 mg IVP Q6H MANOLO Last Admin: 08/26/18 20:21 Dose: 5 mg Oxycodone/Acetaminophen (Percocet 5/325 Mg Tab) 1 tab PO Q4H PRN PRN Reason: Pain, moderate (4-7) Stop: 08/29/18 19:58 Last Admin: 08/26/18 20:22 Dose: 1 tab - Labs Labs: 08/26/18 14:14 08/26/18 14:14 PT 13.7 SECONDS (9.7-12.2) H 08/26/18 14:14 INR 1.3 08/26/18 14:14 APTT 31 SECONDS (21-34) 08/26/18 14:14
[2018-08-27] MEDS: Oxycodone/Acetaminophen 5/325 mg Tab PO PRN ×5 (00:38→21:06)
[2018-08-27] MEDS: Albuterol-Ipratrop 3 mg / 0.5 (3 ml) UD INH SCH ×4 (01:34→20:35)
[2018-08-27] MEDS: Piperacill/Tazo 3.375gm in Dex 3.375 GM/50 ML BAG IVPB SCH ×4 (03:15→21:07)
[2018-08-27 06:35] LABS: SPERM URINE FEW /hpf; SQUAMOUS EPITHIAL < 1 /hpf (0-5); URINE BILIRUBIN NEGATIVE (NEGATIVE); URINE BLOOD 1+ (NEGATIVE); URINE CLARITY Hazy (Clear); URINE COLOR Yellow (YELLOW); URINE GLUCOSE (UA) NORMAL (Normal); URINE LEUKOCYTE ESTERASE NEG Leu/uL (Negative); URINE PROTEIN 2+ mg/dL (NEGATIVE); URINE UROBILINOGEN NORMAL mg/dL (0.2-1.0)
--- NOTE | 2018-08-27 06:59 | PN ---
DATE: 08/26/2018 SUBJECTIVE: The patient is febrile. He has pus draining from his right temporal area and he has a small open ulcer from the lateral aspect of right thigh. PHYSICAL EXAMINATION: VITAL SIGNS: Blood pressure 164/98, pulse 108, respiratory rate 18, and temperature 102.5. SKIN: The patient has sepsis as above. LUNGS: Bilateral rales. CARDIOVASCULAR SYSTEM: S1 and S2, regular. ABDOMEN: Soft. ASSESSMENT: 1. Pneumonia. 2. Ulcerative colitis with drop in hemoglobin. 3. Primary care physician . 4. Hypertension. 5. Rule out Methicillin-resistant Staphylococcus aureus skin infection. PLAN: Add vancomycin, colonoscopy in a.m. Roman Latham MD
[2018-08-27] MEDS: Vancomycin 1 gm/NS 200 ml 1 GM/200 ML BAG IVPB SCH ×2 (08:00→20:03)
[2018-08-27] MEDS: Azithromycin 500 MG in Sodium Chloride 0.9% 250 ML IVPB SCH (10:20)
[2018-08-27] MEDS: Lactated Ringer's 500 ML IV SCH ×3 (10:26→21:06)
[2018-08-27] MEDS: Ferric Sodium Gluconat Complex 62.5 mg/5 ml Vial IVPB SCH (11:18)
--- NOTE | 2018-08-27 11:24 | CP.PCM.CON ---
Past Patient History - Infectious Disease Hx of Infectious Diseases: None - Past Social History Smoking Status: Current Some Days Smoker - CARDIAC Hx Hypertension: Yes - PULMONARY Hx Tuberculosis: No - NEUROLOGICAL Hx Seizures: No - HEMATOLOGICAL/ONCOLOGICAL Hx Human Immunodeficiency Virus (HIV): No - MUSCULOSKELETAL/RHEUMATOLOGICAL Hx Falls: Yes - GENITOURINARY/GYNECOLOGICAL Hx Sexually Transmitted Disorders: No - PSYCHIATRIC Hx Substance Use: Yes (PCP) - SURGICAL HISTORY Hx Orthopedic Surgery: Yes Other/Comment: Both ankles had sx, jaw surgery - ANESTHESIA Hx Anesthesia: Yes Hx Anesthesia Reactions: No Hx Malignant Hyperthermia: No Meds Allergies/Adverse Reactions: Allergies Allergy/AdvReac Type Severity Reaction Status Date / Time No Known Allergies Allergy Verified 08/24/18 14:55 - Medications Medications: Current Medications Acetaminophen (Tylenol 325mg Tab) 650 mg PO Q6 PRN PRN Reason: Fever >100.4 F Last Admin: 08/26/18 16:58 Dose: 650 mg Albuterol/Ipratropium (Duoneb 3 Mg/0.5 Mg (3 Ml) Ud) 3 ml INH RQ6 MANOLO Last Admin: 08/26/18 19:56 Dose: 3 ml Ferric Sodium Gluconate Complex (Ferrlecit) 125 mg IVPB DAILY MANOLO Stop: 08/31/18 16:16 Last Admin: 08/26/18 19:47 Dose: 125 mg Guaifenesin (Robitussin) 200 mg PO Q4H PRN PRN Reason: Cough and congestion Last Admin: 08/25/18 17:19 Dose: 200 mg Heparin Sodium (Porcine) (Heparin) 5,000 units SC Q8 MANOLO Last Admin: 08/26/18 21:50 Dose: 5,000 units Azithromycin 500 mg/ Sodium (Chloride) 250 mls @ 250 mls/hr IVPB DAILY MANOLO; Protocol Last Admin: 08/26/18 11:48 Dose: 250 mls/hr Piperacillin Sod/Tazobactam Sod (Zosyn 3.375 Gm Iv Premix) 3.375 gm in 50 mls @ 200 mls/hr IVPB Q6H MANOLO; Protocol Last Admin: 08/26/18 22:17 Dose: 200 mls/hr Lactated Ringer's (Lactated Ringer's 500ml) 500 mls @ 75 mls/hr IV .Q6H40M MANOLO Last Admin: 08/26/18 20:30 Dose: Not Given Vancomycin/Sodium Chloride (Vancomycin 1 Gm/Ns 200 Ml) 1 gm in 200 mls @ 133 mls/hr IVPB Q12H MANOLO; Protocol Stop: 08/31/18 20:01 Last Admin: 08/26/18 20:29 Dose: Not Given Metoclopramide HCl (Reglan) 5 mg IVP Q6H MANOLO Last Admin: 08/26/18 20:21 Dose: 5 mg Oxycodone/Acetaminophen (Percocet 5/325 Mg Tab) 1 tab PO Q4H PRN PRN Reason: Pain, moderate (4-7) Stop: 08/29/18 19:58 Last Admin: 08/26/18 20:22 Dose: 1 tab Results - Vital Signs Recent Vital Signs: Last Vital Signs Temp 102.7 F H 08/26/18 16:58 Pulse 108 H 08/26/18 16:25 Resp 18 08/26/18 16:25 BP 164/98 H 08/26/18 16:25 Pulse Ox 91 L 08/26/18 16:25 - Labs Result Diagrams: 08/26/18 14:14 08/26/18 14:14 Labs: Laboratory Results - last 24 hr 08/26/18 08/26/18 08/26/18 14:14 14:14 14:14 WBC 9.0 RBC 3.41 L Hgb 8.4 L Hct 26.6 L MCV 78.1 L MCH 24.5 L MCHC 31.4 L RDW 15.5 H Plt Count 491 H D MPV 6.7 L Neut % (Auto) 60.0 Lymph % (Auto) 21.3 [place] % (Auto) 16.8 H Eos % (Auto) 1.6 Baso % (Auto) 0.3 Neut # (Auto) 5.4 Lymph # (Auto) 1.9 [place] # (Auto) 1.5 H Eos # (Auto) 0.1 Baso # (Auto) 0.0 PT 13.7 H INR 1.3 APTT 31 Sodium 134 Potassium 3.7 Chloride 98 Carbon Dioxide 28 Anion Gap 12 BUN 8 L Creatinine 1.1 Est GFR ( Amer) > 60 Est GFR (Non-Af Amer) > 60 Random Glucose 113 H Lactic Acid Calcium 8.5 L Phosphorus 3.0 Magnesium 2.0 Iron TIBC % Saturation Total Bilirubin 0.4 AST 20 ALT 26 Alkaline Phosphatase 81 Total Protein 7.3 Albumin 3.4 L D Globulin 3.9 Albumin/Globulin Ratio 0.9 L Alpha Fetoprotein Carcinoembryonic Ag CA 19-9 Antigen Urine Opiates Screen Urine Methadone Screen Ur Barbiturates Screen Ur Phencyclidine Scrn Ur Amphetamines Screen U Benzodiazepines Scrn U Oth Cocaine Metabols U Cannabinoids Screen 08/26/18 08/26/18 08/26/18 14:14 14:14 14:16 WBC RBC Hgb Hct MCV MCH MCHC RDW Plt Count MPV Neut % (Auto) Lymph % (Auto) [place] % (Auto) Eos % (Auto) Baso % (Auto) Neut # (Auto) Lymph # (Auto) [place] # (Auto) Eos # (Auto) Baso # (Auto) PT INR APTT Sodium Potassium Chloride Carbon Dioxide Anion Gap BUN Creatinine Est GFR ( Amer) Est GFR (Non-Af Amer) Random Glucose Lactic Acid Calcium Phosphorus Magnesium Iron 11 L TIBC 296 % Saturation 4 L Total Bilirubin AST ALT Alkaline Phosphatase Total Protein Albumin Globulin Albumin/Globulin Ratio Alpha Fetoprotein 2.4 Carcinoembryonic Ag 2.9 CA 19-9 Antigen 5.1 Urine Opiates Screen Urine Methadone Screen Ur Barbiturates Screen Ur Phencyclidine Scrn Ur Amphetamines Screen U Benzodiazepines Scrn U Oth Cocaine Metabols U Cannabinoids Screen 08/26/18 08/26/18 18:41 21:07 WBC RBC Hgb Hct MCV MCH MCHC RDW Plt Count MPV Neut % (Auto) Lymph % (Auto) [place] % (Auto) Eos % (Auto) Baso % (Auto) Neut # (Auto) Lymph # (Auto) [place] # (Auto) Eos # (Auto) Baso # (Auto) PT INR APTT Sodium Potassium Chloride Carbon Dioxide Anion Gap BUN Creatinine Est GFR ( Amer) Est GFR (Non-Af Amer) Random Glucose Lactic Acid 0.6 L Calcium Phosphorus Magnesium Iron TIBC % Saturation Total Bilirubin AST ALT Alkaline Phosphatase Total Protein Albumin Globulin Albumin/Globulin Ratio Alpha Fetoprotein Carcinoembryonic Ag CA 19-9 Antigen Urine Opiates Screen Negative Urine Methadone Screen Negative Ur Barbiturates Screen Negative Ur Phencyclidine Scrn Positive H Ur Amphetamines Screen Negative U Benzodiazepines Scrn Positive U Oth Cocaine Metabols Negative U Cannabinoids Screen Negative
[2018-08-27] MEDS ORDERED: Midazolam 2 MG/2 ML VIAL ONE (12:12)
[2018-08-27] MEDS ORDERED: Propofol 10 mg/ml Inj (20 ML) ONE (12:12)
[2018-08-27 16:12] VITALS: RESP 20
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
[2018-08-27] MEDS ORDERED: Ferric Sodium Gluconat Complex 125 MG in Sodium Chloride 0.9% 100 ML IVPB SCH (18:00)
[2018-08-27] MEDS ORDERED: Ferric Sodium Gluconat Complex 62.5 mg/5 ml Vial IVPB SCH (18:00)
--- NOTE | 2018-08-27 22:44 | CP.PCM.PN ---
Subjective - Subjective Subjective: dictated Objective - Vital Signs/Intake and Output Vital Signs (last 24 hours): Temp Pulse Resp BP Pulse Ox 99.7 F H 105 H 20 160/106 H 93 L 08/27/18 15:00 08/27/18 15:00 08/27/18 15:00 08/27/18 15:00 08/27/18 15:00 Intake and Output: 08/27/18 08/28/18 18:59 06:59 Intake Total 1000 400 Output Total 350 Balance 1000 50 - Medications Medications: Current Medications Acetaminophen (Tylenol 325mg Tab) 650 mg PO Q6 PRN PRN Reason: Fever >100.4 F Last Admin: 08/26/18 16:58 Dose: 650 mg Albuterol/Ipratropium (Duoneb 3 Mg/0.5 Mg (3 Ml) Ud) 3 ml INH RQ6 MANOLO Last Admin: 08/27/18 20:35 Dose: Not Given Guaifenesin (Robitussin) 200 mg PO Q4H PRN PRN Reason: Cough and congestion Last Admin: 08/25/18 17:19 Dose: 200 mg Heparin Sodium (Porcine) (Heparin) 5,000 units SC Q8 MANOLO Last Admin: 08/27/18 21:09 Dose: Not Given Azithromycin 500 mg/ Sodium (Chloride) 250 mls @ 250 mls/hr IVPB DAILY MANOLO; Pr otocol Last Admin: 08/27/18 10:20 Dose: 250 mls/hr Piperacillin Sod/Tazobactam Sod (Zosyn 3.375 Gm Iv Premix) 3.375 gm in 50 mls @ 200 mls/hr IVPB Q6H MANOLO; Protocol Last Admin: 08/27/18 21:07 Dose: 200 mls/hr Lactated Ringer's (Lactated Ringer's 500ml) 500 mls @ 75 mls/hr IV .Q6H40M MANOLO Last Admin: 08/27/18 21:06 Dose: Not Given Vancomycin/Sodium Chloride (Vancomycin 1 Gm/Ns 200 Ml) 1 gm in 200 mls @ 133 mls/hr IVPB Q12H MANOLO; Protocol Stop: 08/31/18 20:01 Last Admin: 08/27/18 20:03 Dose: 133 mls/hr Ferric Sodium Gluconate Complex 125 mg/ Sodium Chloride 110 mls @ 100 mls/hr IVPB DAILY@1800 MANOLO Stop: 09/04/18 18:01 Last Admin: 08/27/18 18:21 Dose: 100 mls/hr Metoclopramide HCl (Reglan) 5 mg IVP Q6H MANOLO Last Admin: 08/27/18 16:06 Dose: 5 mg Oxycodone/Acetaminophen (Percocet 5/325 Mg Tab) 1 tab PO Q4H PRN PRN Reason: Pain, moderate (4-7) Stop: 08/29/18 19:58 Last Admin: 08/27/18 21:06 Dose: 1 tab - Labs Labs: 08/26/18 14:14 08/26/18 14:14 PT 13.7 SECONDS (9.7-12.2) H 08/26/18 14:14 INR 1.3 08/26/18 14:14 APTT 31 SECONDS (21-34) 08/26/18 14:14
[2018-08-28 00:53] VITALS: O2SAT 98
[2018-08-28] MEDS: Albuterol-Ipratrop 3 mg / 0.5 (3 ml) UD INH SCH ×3 (01:22→13:32)
[2018-08-28] MEDS: Piperacill/Tazo 3.375gm in Dex 3.375 GM/50 ML BAG IVPB SCH (02:33)
[2018-08-28] MEDS: Oxycodone/Acetaminophen 5/325 mg Tab PO PRN ×3 (02:33→12:25)
[2018-08-28] MEDS: Lactated Ringer's 500 ML IV SCH ×2 (03:00→10:40)
--- NOTE | 2018-08-28 03:54 | PN ---
DATE: 08/27/2018 SUBJECTIVE: The patient is afebrile. He is on vancomycin. No nausea or vomiting. PHYSICAL EXAMINATION: VITAL SIGNS: Blood pressure 160/106, pulse 105, respiratory rate 20, and temperature 99.7. LUNGS: Clear. CARDIOVASCULAR SYSTEM: S1 and S2, regular. ABDOMEN: Soft. ASSESSMENT: 1. Rule out ulcerative colitis. 2. Anemia due to gastrointestinal loss. 3. Pneumonia. 4. Hypertension. PLAN: Continue antibiotics. Seen by Pulmonary. Roman Latham MD
[2018-08-28] MEDS: Vancomycin 1 gm/NS 200 ml 1 GM/200 ML BAG IVPB SCH (07:28)
[2018-08-28 07:47] VITALS: BP 145/81; PULSE 97; TEMP 99.6
[2018-08-28] MEDS: Azithromycin 500 MG in Sodium Chloride 0.9% 250 ML IVPB SCH (10:41)
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
--- NOTE | 2018-08-28 21:36 | CP.PCM.DIS ---
Provider - Provider Date of Admission: 08/24/18 21:07 Attending physician: Roman Latham MD Consults: 08/25/18 16:02 Gastroenterology Consult Routine Comment: Consulting Provider: Josh العراقي Consulting Physician: Josh العراقي Reason for Consult: gib 08/25/18 21:45 Gastroenterology Consult Routine Comment: Consulting Provider: Josh العراقي Consulting Physician: Josh العراقي Reason for Consult: gib 08/26/18 16:36 Infectious Disease Consult Routine Comment: Consulting Provider: Devin Rushing Consulting Physician: Devin Rushing Reason for Consult: febrile 08/27/18 11:45 Pulmonology Consult Routine Comment: Consulting Provider: Adriel Ryan Consulting Physician: Adriel Ryan Reason for Consult: pneumonia Hospital Course - Lab Results Lab Results: Micro Results 08/26/18 18:41 Blood Blood Culture - Preliminary NO GROWTH AFTER 48 HOURS 08/26/18 18:41 Blood Blood Culture - Preliminary NO GROWTH AFTER 48 HOURS 08/24/18 18:29 Blood Blood Culture - Preliminary NO GROWTH AFTER 4 DAYS 08/24/18 18:00 Blood Blood Culture - Preliminary NO GROWTH AFTER 4 DAYS 08/27/18 06:03 Head Gram Stain - Final 08/27/18 06:03 Head Wound Culture - Preliminary Gram Negative [place] 08/26/18 18:41 Urine Urine Culture - Final No Growth (<1,000 CFU/ML) 08/24/18 18:08 Urine,Clean Catch Urine Culture - Final No Growth (<1,000 CFU/ML) Most Recent Lab Values WBC 9.0 K/uL (4.8-10.8) 08/26/18 14:14 RBC 3.41 Mil/uL (4.40-5.90) L 08/26/18 14:14 Hgb 8.4 g/dL (12.0-18.0) L 08/26/18 14:14 Hct 26.6 % (35.0-51.0) L 08/26/18 14:14 MCV 78.1 fL (80.0-94.0) L 08/26/18 14:14 MCH 24.5 pg (27.0-31.0) L 08/26/18 14:14 MCHC 31.4 g/dL (33.0-37.0) L 08/26/18 14:14 RDW 15.5 % (11.5-14.5) H 08/26/18 14:14 Plt Count 491 K/uL (130-400) H D 08/26/18 14:14 MPV 6.7 fL (7.2-11.7) L 08/26/18 14:14 Neut % (Auto) 60.0 % (50.0-75.0) 08/26/18 14:14 Lymph % (Auto) 21.3 % (20.0-40.0) 08/26/18 14:14 [place] % (Auto) 16.8 % (0.0-10.0) H 08/26/18 14:14 Eos % (Auto) 1.6 % (0.0-4.0) 08/26/18 14:14 Baso % (Auto) 0.3 % (0.0-2.0) 08/26/18 14:14 Neut # (Auto) 5.4 K/uL (1.8-7.0) 08/26/18 14:14 Lymph # (Auto) 1.9 K/uL (1.0-4.3) 08/26/18 14:14 [place] # (Auto) 1.5 K/uL (0.0-0.8) H 08/26/18 14:14 Eos # (Auto) 0.1 K/uL (0.0-0.7) 08/26/18 14:14 Baso # (Auto) 0.0 K/uL (0.0-0.2) 08/26/18 14:14 PT 13.7 SECONDS (9.7-12.2) H 08/26/18 14:14 INR 1.3 08/26/18 14:14 APTT 31 SECONDS (21-34) 08/26/18 14:14 pO2 44 mm/Hg (30-55) 08/24/18 18:35 VBG pH 7.38 (7.32-7.43) 08/24/18 18:35 VBG pCO2 47 mmHg (40-60) 08/24/18 18:35 VBG HCO3 26.0 mmol/L 08/24/18 18:35 VBG Total CO2 29.2 mmol/L (22-28) H 08/24/18 18:35 VBG O2 Sat (Calc) 82.3 % (40-65) H 08/24/18 18:35 VBG Base Excess 2.0 mmol/L (0.0-2.0) 08/24/18 18:35 VBG Potassium 3.7 mmol/L (3.6-5.2) 08/24/18 18:35 Sodium 136.0 mmol/l (132-148) 08/24/18 18:35 Chloride 106.0 mmol/L (98-107) 08/24/18 18:35 Glucose 93 mg/dl (75-110) 08/24/18 18:35 Lactate 1.2 mmol/L (0.7-2.1) 08/24/18 18:35 Sodium 134 mmol/L (132-148) 08/26/18 14:14 Potassium 3.7 mmol/L (3.6-5.2) 08/26/18 14:14 Chloride 98 mmol/L (98-107) 08/26/18 14:14 Carbon Dioxide 28 mmol/L (22-30) 08/26/18 14:14 Anion Gap 12 (10-20) 08/26/18 14:14 BUN 8 mg/dL (9-20) L 08/26/18 14:14 Creatinine 1.1 mg/dL (0.8-1.5) 08/26/18 14:14 Est GFR ( Amer) > 60 08/26/18 14:14 Est GFR (Non-Af Amer) > 60 08/26/18 14:14 POC Glucose (mg/dL) 117 mg/dL (65-110) H 08/24/18 15:10 Random Glucose 113 mg/dL (75-110) H 08/26/18 14:14 Lactic Acid 0.6 mmol/L (0.7-2.1) L 08/26/18 21:07 Calcium 8.5 mg/dl (8.6-10.4) L 08/26/18 14:14 Phosphorus 3.0 mg/dL (2.5-4.5) 08/26/18 14:14 Magnesium 2.0 mg/dL (1.6-2.3) 08/26/18 14:14 Iron 11 ug/dL (49-181) L 08/26/18 14:16 TIBC 296 ug/dL (250-450) 08/26/18 14:16 % Saturation 4 (20-55) L 08/26/18 14:16 Total Bilirubin 0.4 mg/dL (0.2-1.3) 08/26/18 14:14 AST 20 U/L (17-59) 08/26/18 14:14 ALT 26 U/L (21-72) 08/26/18 14:14 Alkaline Phosphatase 81 U/L (38-126) 08/26/18 14:14 Total Protein 7.3 g/dL (6.3-8.3) 08/26/18 14:14 Albumin 3.4 g/dL (3.5-5.0) L D 08/26/18 14:14 Globulin 3.9 gm/dL (2.2-3.9) 08/26/18 14:14 Albumin/Globulin Ratio 0.9 (1.0-2.1) L 08/26/18 14:14 Alpha Fetoprotein 2.4 ng/mL (0.0-7.5) 08/26/18 14:14 Carcinoembryonic Ag 2.9 ng/mL (0-3.0) 08/26/18 14:14 CA 19-9 Antigen 5.1 U/mL (0-37) 08/26/18 14:14 Venous Blood Potassium 3.7 mmol/L (3.6-5.2) 08/24/18 18:35 Urine Color Yellow (YELLOW) 08/27/18 06:24 Urine Clarity Hazy (Clear) 08/27/18 06:24 Urine pH 6.0 (5.0-8.0) 08/27/18 06:24 Ur Specific [place] 1.031 (1.003-1.030) H 08/27/18 06:24 Urine Protein 2+ mg/dL (NEGATIVE) H 08/27/18 06:24 Urine Glucose (UA) Normal mg/dL (Normal) 08/27/18 06:24 Urine Ketones Negative mg/dL (NEGATIVE) 08/27/18 06:24 Urine Blood 1+ (NEGATIVE) H 08/27/18 06:24 Urine Nitrate Negative (NEGATIVE) 08/27/18 06:24 Urine Bilirubin Negative (NEGATIVE) 08/27/18 06:24 Urine Urobilinogen Normal mg/dL (0.2-1.0) 08/27/18 06:24 Ur Leukocyte Esterase Neg [place]/uL (Negative) 08/27/18 06:24 Urine WBC (Auto) 2 /hpf (0-5) 08/27/18 06:24 Urine RBC (Auto) 7 /hpf (0-3) H 08/27/18 06:24 Ur Squamous Epith Cells < 1 /hpf (0-5) 08/27/18 06:24 Urine Bacteria Rare (<OCC) 08/24/18 18:08 Urine Sperm (Auto) Few /hpf (NONE) H 08/27/18 06:24 Urine Opiates Screen Negative (NEGATIVE) 08/26/18 18:41 Urine Methadone Screen Negative (NEGATIVE) 08/26/18 18:41 Ur Barbiturates Screen Negative (NEGATIVE) 12 18:41 Ur Phencyclidine Scrn Positive (NEGATIVE) H 08/26/18 18:41 Ur Amphetamines Screen Negative (NEGATIVE) 08/26/18 18:41 U Benzodiazepines Scrn Positive (NEGATIVE) 08/26/18 18:41 U Oth Cocaine Metabols Negative (NEGATIVE) 08/26/18 18:41 U Cannabinoids Screen Negative (NEGATIVE) 08/26/18 18:41 Alcohol, Quantitative < 10 mg/dl (0-10) 08/24/18 19:16 Influenza Typ A,B (EIA) Negative for flu a/b (NEGATIVE) 08/24/18 Unknown Ur L.pneumophila Ag Negative (NEGATIVE) 08/25/18 17:16 Blood Type A POSITIVE 08/25/18 17:09 Blood Type Confirm A POSITIVE 08/25/18 17:09 Antibody Screen Negative 08/25/18 17:09 Discharge Exam - Head Exam Head Exam: ATRAUMATIC, NORMOCEPHALIC Discharge Plan - Discharge Medications Prescriptions: Bacitracin OINT 1 applic TP BID #1 tube Clindamycin [Cleocin] 300 mg PO Q8 #30 cap - Follow Up Plan Condition: STABLE Disposition: HOME/ ROUTINE Instructions: Pneumonia, Adult (DC), Normocytic Normochromic Anemia (DC) Additional Instructions: Please follow up with clinic in 1 week Continue antibiotics for 10 days
--- NOTE | 2018-08-28 23:10 | PN ---
DATE: 08/28/2018 LOCATION: 650, bed B. SUBJECTIVE: This is a 38-year-old male seen and examined in rounds earlier this morning without significant clinical changes or reported active bleeding, tolerating oral intake well. The entire chart is reviewed including, but not limited to the most recent lab and radiology study results, current and the previous medication list, and pathology report from upper and lower endoscopy still pending. PHYSICAL EXAMINATION: GENERAL: This is a 38-year-old male, refusing IV fluids and IV antibiotics. VITAL SIGNS: Low-grade temperature of 99.6, heart rate 94, respiratory rate 20 to 22, blood pressure 140/78. HEENT: Showed pale, dry oral mucous membranes. Nonicteric sclerae. LUNGS: Few scattered crepitations. Decreased air entry at bases. HEART: Positive S1 and S2. ABDOMEN: Soft, with mild generalized tenderness. No mass or organomegaly. No rebound tenderness or guarding. LABORATORY DATA: Pathology report from the colon showed, however, evidence of chronic colitis and upper endoscopy biopsy was negative for Helicobacter pylori infection. IMPRESSION: 1. Peptic ulcer disease. 2. Colitis. 3. Colon polyp by colonoscopy. 4. Known history of hypertension and substance abuse. SUGGESTIONS: 1. Continue current management. 2. If the patient refused treatment, then may discharge home. Further recommendations to follow. Josh Wallace MD
--- NOTE | 2018-08-29 13:28 | DS ---
ADMISSION DIAGNOSIS: Pneumonia. DISCHARGE DIAGNOSES: 1. Skin infection cellulitis from gram-negative rods. 2. Anemia. 3. Hypertension. HISTORY OF PRESENT ILLNESS: This is a 38-year-old male with a history of substance abuse, hypertension, who came in with generalized weakness, tiredness, fever, chills, and rigors. He had history of multiple injuries and he had abscess on the right yazidi and right hip area and the patient was started on Zosyn and vancomycin. He became afebrile and he is for discharge. CONDITION UPON DISCHARGE: Stable. PHYSICAL EXAMINATION: VITAL SIGNS: Blood pressure 145/81, pulse 97, respiratory rate 20, and temperature 99.6. LUNGS: Clear. CARDIOVASCULAR SYSTEM: S1 and S2, regular. ABDOMEN: Soft. ASSESSMENT: 1. Iron deficiency anemia. 2. History of ulcerative colitis. 3. Hypertension. 4. Subcutaneous abscesses. PLAN: Discharge the patient. Roman Latham MD
== END 2018-08-28 15:54 | disposition home or self-care (01) | DRG 277 ==
LOC: C.ER 14:40 → C.9E 21:07 → C.6T 22:16
PROVIDERS: ADMIT Internal Medicine; ATTEND Internal Medicine
PROC: 0DB68ZX Excision of Stomach, Via Natural or Artificial Opening Endoscopic, Diagnostic (ICD-10-PCS; 2018-08-26)
PROC: 0DBL8ZX Excision of Transverse Colon, Via Natural or Artificial Opening Endoscopic, Diagnostic (ICD-10-PCS; 2018-08-27)
PROC: 0DBM8ZX Excision of Descending Colon, Via Natural or Artificial Opening Endoscopic, Diagnostic (ICD-10-PCS; 2018-08-27)
PROC: 0DBK8ZX Excision of Ascending Colon, Via Natural or Artificial Opening Endoscopic, Diagnostic (ICD-10-PCS; principal; 2018-08-27 12:08)
DX: L02.01 Cutaneous abscess of face (principal); K51.818 Other ulcerative colitis with other complication; K51.40 Inflammatory polyps of colon without complications; K25.9 Gastric ulcer, unspecified as acute or chronic, without hemorrhage or perforation; D50.0 Iron deficiency anemia secondary to blood loss (chronic); K92.2 Gastrointestinal hemorrhage, unspecified; K29.00 Acute gastritis without bleeding; K57.30 Diverticulosis of large intestine without perforation or abscess without bleeding; B96.89 Other specified bacterial agents as the cause of diseases classified elsewhere; K21.0 Gastro-esophageal reflux disease with esophagitis; F16.10 Hallucinogen abuse, uncomplicated; K44.9 Diaphragmatic hernia without obstruction or gangrene; K64.8 Other hemorrhoids; I10 Essential (primary) hypertension; G89.29 Other chronic pain; F17.210 Nicotine dependence, cigarettes, uncomplicated; W19.XXXD Unspecified fall, subsequent encounter; S00.81XD Abrasion of other part of head, subsequent encounter; S00.211D Abrasion of right eyelid and periocular area, subsequent encounter; Y04.0XXD Assault by unarmed brawl or fight, subsequent encounter; Z91.81 History of falling; Z59.0 Homelessness

== ENCOUNTER 2018-08-29 10:35 | Emergency (ER) | payer MEDICAID ==
[2018-08-29 10:36] VITALS: BMI 30.8
--- NOTE | 2018-08-29 11:07 | C.PDOC ---
History Of Present Illness 38 y/o male with PMH of substance abuse, chronic pain, and colitis presents to the ED complaining of chronic pain in his lower back, legs, and to right ribs, ongoing for months. Patient states it is painful to walk upright. Patient also reports he was being prescribed Percocet but ran out, demanding pain medicine. He was discharged home last night after 4 day admission for colitis, anemia, and pneumonia, and states he has not filled the prescriptions for his antibiotics or attempted to followup in the clinic as directed. Patient states he "just needs to rest for a while", refusing further evaluation Additionally, he complains of left eye redness and discomfort for 2 weeks, with increased tearing. Pt is well known to the ED. Denies visual loss, fever, headache, chest pain, SOB, productive cough, abdominal pain, vomiting, diarrhea, saddles anesthesia, urinary retention or incontinence, or other associated symptoms. ROS limited secondary to patient's uncooperative nature. Time Seen by Provider: 08/29/18 11:04 Chief Complaint (Nursing): Pain, Chronic History Per: Patient History/Exam Limitations: no limitations Onset/Duration Of Symptoms: Days Current Symptoms Are (Timing): Still Present Past Medical History Reviewed: Historical Data, Nursing Documentation, Vital Signs Vital Signs: Last Vital Signs Temp 98.3 F 08/29/18 10:49 Pulse 93 H 08/29/18 10:49 Resp 17 08/29/18 10:49 BP 139/75 08/29/18 10:49 Pulse Ox 97 08/29/18 10:49 - Medical History PMH: HTN Denies: Diabetes, Hepatitis, HIV, Seizures, Sexually Transmitted Disease Family History: States: Unknown Family Hx - Social History Hx Alcohol Use: No Hx Substance Use: No (hx PCP, denies drug use now) - Immunization History Hx Tetanus Toxoid Vaccination: No Hx Influenza Vaccination: No Hx Pneumococcal Vaccination: No Review Of Systems Except As Marked, All Systems Reviewed And Found Negative. Constitutional: Negative for: Fever, Chills Eyes: Positive for: Pain, Redness, Other (Increased tearing). Negative for: Vision Change Cardiovascular: Positive for: Other (Chronic right rib pain). Negative for: Chest Pain Respiratory: Negative for: Cough, Shortness of Breath, Pleuritic Pain Gastrointestinal: Negative for: Vomiting, Abdominal Pain, Diarrhea Genitourinary: Negative for: Incontinence, Hematuria Musculoskeletal: Positive for: Back Pain Neurological: Positive for: Other (Photophobia). Negative for: Weakness, Numbness, Dizziness Physical Exam - Physical Exam Appears: Non-toxic, No Acute Distress, Unkempt, Other (Uncooperative) Skin: Warm, Dry Head: Atraumatic, Normacephalic Eye(s): bilateral: PERRL, EOMI, right: Normal Inspection, left: Photophobia, Other (+ conjunctival injection and increased watery tearing to left eye; no proptosis; no periorbital swelling; no pain on eye movements; no tenderness; gross vision intact) Ear(s): Bilateral: Normal Nose: Normal Oral Mucosa: Moist Neck: Normal ROM, Supple Chest: Tenderness (right ribs; injury 05/2018) Cardiovascular: Rhythm Regular, No Murmur Respiratory: Normal Breath Sounds, No Rales, No Rhonchi, No Wheezing Gastrointestinal/Abdominal: Soft, No Tenderness, No Guarding, No Rebound Back: Normal Inspection, No CVA Tenderness Extremity: Normal ROM Extremity: Bilateral: Atraumatic, No Pedal Edema, Normal Color And Temperature, Normal ROM, Other (moving all extremities) Pulses: Left Radial: Normal, Right Radial: Normal, Left Dorsalis Pedis: Normal, Right Dorsalis Pedis: Normal Neurological/Psych: Oriented x3, Normal Speech, Normal Cognition, Normal Cranial Nerves, Normal Motor, Normal Sensation, Other (No focal deficits) Gait: Steady ED Course And Treatment O2 Sat by Pulse Oximetry: 97 (RA) Pulse Ox Interpretation: Normal Medical Decision Making Medical Decision Making: Impression: Chronic pain Plan: --Lidoderm patch x1 --Tylenol 650 mg PO Patient very uncooperative on initial physical exam, agitated, not following instructions, refusing parts of examination. 13:45 Patient reports decreased back pain and headache after medications Patient refusing visual acuity testing. 14:[address] Jarvis evaluated and fully examined patient at bedside. Dr. Jarvis is familiar with patient and his typical presentation, states he is at baseline from when she saw him on 08/24/18, including eye redness and chronic pain complaints. Recommends antibiotic eye ointment and discharge home with clinic followup. No need for workup or further evaluation, per Dr. Jarvis. 14:30 Spoke with admitting doctor, Dr. Roman Latham regarding patient's case and presentation in ED today. Recommends discharge home with instructions to fill antibiotic prescription with clinic followup. Diagnostic testing results and plan of care discussed with patient, and strict instructions given regarding prescriptions, importance of follow up, and signs to return to Emergency Department, to include vision changes, worsening headache, fever, chills, or any other new/worsening symptoms. Patient verbalizes understanding of discussion. Patient A&Ox3, ambulating with steady gait, stable for discharge home. Disposition Discussed With DrHazel: Roman Latham Comment: Recommends d/c home with clinic followup, no further workup or cxr indicated. Doctor Will See Patient In The: Office Counseled Patient/Family Regarding: Studies Performed, Diagnosis, Need For Followup, Rx Given - Disposition Referrals: [facility] [Outside] Brian Dodge [Staff Provider] - Disposition: HOME/ ROUTINE Disposition Time: 14:30 Condition: IMPROVED Additional Instructions: Take Clindamycin every 8 hours as prescribed Use erythromycin cream on eye 4-5 times daily for 1 week Ibuprofen/Tylenol for pain Followup with PMD or clinic within 2 days Followup with eye doctor for persistent eye discomfort Followup with ER with any new/worsening symptoms Prescriptions: Ibuprofen [Motrin Tab] 600 mg PO Q8H #30 tab Instructions: Conjunctivitis (Pinkeye) (DC) Forms: [employer] (Peruvian) - Clinical Impression Clinical Impression: Chronic pain, Conjunctivitis - PA / SENIOR CASE MANAGER / Resident Statement MD/DO has reviewed & agrees with the documentation as recorded. - Scribe Statement The provider has reviewed the documentation as recorded by the Cadence Lee All medical record entries made by the Jenniferibkae were at my direction and personally dictated by me. I have reviewed the chart and agree that the record accurately reflects my personal performance of the history, physical exam, medical decision making, and the department course for this patient. I have also personally directed, reviewed, and agree with the discharge instructions and disposition.
[2018-08-29] MEDS ORDERED: Lidocaine 5% Patch TD STA (12:00)
[2018-08-29] MEDS ORDERED: Lidocaine 5% Patch TD ONE (12:11)
[2018-08-29] MEDS ORDERED: Erythromycin 0.5% Ophth Oint 1 APPLIC/3.5 G OD STA (14:27)
[2018-08-29 15:31] VITALS: BP 153/84; PULSE 92; RESP 20; TEMP 98.2
[2018-08-29 23:38] VITALS: O2SAT 97
== END 2018-08-29 16:05 | disposition home or self-care (01) ==
LOC: C.ER 10:35
DX: G89.29 Other chronic pain (principal); H10.9 Unspecified conjunctivitis

== ENCOUNTER 2018-08-30 10:50 | Emergency (ER) | payer MEDICAID ==
[2018-08-30 10:50] VITALS: BMI 30.8
[2018-08-30 11:15] VITALS: BP 142/81; PULSE 101; RESP 20; TEMP 99.9; O2SAT 95
--- NOTE | 2018-08-30 11:32 | C.PDOC ---
History Of Present Illness 38 y/o male with history of prior rib fracture presents to ED with c/o chronic pain. Patient seen yesterday at ED for same and denies new injury since yesterday and is non compliant with medication from recent admission. Patient denies change in sensation, nausea, vomiting, chest pain, saddle anesthesia, bowel/bladder incontinence or any other complaints at this time. Time Seen by Provider: 08/30/18 11:15 Chief Complaint (Nursing): Medical Clearance History Per: Patient History/Exam Limitations: no limitations Onset/Duration Of Symptoms: Days Current Symptoms Are (Timing): Still Present Past Medical History Reviewed: Historical Data, Nursing Documentation, Vital Signs Vital Signs: Last Vital Signs Temp 99.9 F H 08/30/18 11:09 Pulse 101 H 08/30/18 11:09 Resp 20 08/30/18 11:09 BP 142/81 08/30/18 11:09 Pulse Ox 95 08/30/18 11:09 - Medical History PMH: HTN, Chronic Pain Surgical History: No Surg Hx - [facility] Procedures EXCISION OF ASCENDING COLON, ENDO, DIAGN (08/24/18) EXCISION OF DESCENDING COLON, ENDO, DIAGN (08/24/18) EXCISION OF STOMACH, ENDO, DIAGN (08/24/18) EXCISION OF TRANSVERSE COLON, ENDO, DIAGN (08/24/18) Family History: States: No Known Family Hx - Social History Hx Alcohol Use: No Hx Substance Use: No (hx PCP, denies drug use now) - Immunization History Hx Tetanus Toxoid Vaccination: No Hx Influenza Vaccination: No Hx Pneumococcal Vaccination: No Review Of Systems Cardiovascular: Negative for: Chest Pain Respiratory: Negative for: Cough, Shortness of Breath Gastrointestinal: Negative for: Nausea, Vomiting, Abdominal Pain Musculoskeletal: Positive for: Back Pain, Leg Pain Neurological: Negative for: Weakness, Numbness Physical Exam - Physical Exam Appears: Non-toxic, No Acute Distress, Unkempt, Other (Disheveled) Skin: Warm, Dry, No Rash, Other (No signs of new trauma) Head: Atraumatic, Normacephalic Eye(s): bilateral: Normal Inspection Oral Mucosa: Moist Neck: Normal ROM, Supple Cardiovascular: Rhythm Regular Respiratory: Normal Breath Sounds, No Rales, No Rhonchi, No Wheezing Gastrointestinal/Abdominal: Soft, No Tenderness, No Guarding, No Rebound Back: No CVA Tenderness, No Paraspinal Tenderness Extremity: Normal ROM, No Pedal Edema, Capillary Refill (<2 seconds) Neurological/Psych: Oriented x3, Normal Speech, Normal Cognition, Normal Motor, Normal Sensation Gait: Steady ED Course And Treatment O2 Sat by Pulse Oximetry: 95 (RA) Pulse Ox Interpretation: Normal Medical Decision Making Medical Decision Making: Discussed with Patient department policy for pain medication, offered Tylenol or Motrin for pain. Patient became uncooperative at ED and refused pain medication. Disposition Counseled Patient/Family Regarding: Diagnosis, Need For Followup - Disposition Referrals: your,pmd [Other] Disposition: HOME/ ROUTINE Disposition Time: 11:31 Condition: GOOD Instructions: Chronic Pain (DC) Forms: [employer] (American) - Clinical Impression Clinical Impression: Homeless, Chronic pain - Scribe Statement The provider has reviewed the documentation as recorded by the Jenniferibkae Maddox All medical record entries made by the Jenniferibkae were at my direction and personally dictated by me. I have reviewed the chart and agree that the record accurately reflects my personal performance of the history, physical exam, medical decision making, and the department course for this patient. I have also personally directed, reviewed, and agree with the discharge instructions and disposition.
== END 2018-08-30 12:00 | disposition home or self-care (01) ==
LOC: C.ER 10:50
DX: G89.29 Other chronic pain (principal)

== ENCOUNTER 2018-10-13 18:37 | Emergency (ER) | payer MEDICAID ==
[2018-10-13 18:38] VITALS: BMI 30.8
[2018-10-13 18:44] VITALS: TEMP 98.4
--- NOTE | 2018-10-13 19:10 | C.PDOC ---
History Of Present Illness 38 year old male is brought into the emergency department by ALS s/p heroin overdose. Patient was given Narcan in the field. Patient is currently sleeping at bedside and unable to offer any complaints. Time Seen by Provider: 10/13/18 18:41 Chief Complaint (Nursing): Substance Abuse History Per: Patient History/Exam Limitations: no limitations Onset/Duration Of Symptoms: Hrs Current Symptoms Are (Timing): Still Present Suicide/Self Injury Attempted (Context): None Modifying Factor(s): Other (heroin) Past Medical History Reviewed: Historical Data, Nursing Documentation, Vital Signs Vital Signs: Last Vital Signs Temp 98.4 F 10/13/18 18:40 Pulse 105 H 10/13/18 18:40 Resp 20 10/13/18 18:40 BP 129/67 10/13/18 18:40 Pulse Ox 98 10/13/18 18:40 - Medical History PMH: HTN, Chronic Pain Denies: Diabetes, Hepatitis, HIV, Seizures, Sexually Transmitted Disease Surgical History: No Surg Hx - [facility] Procedures EXCISION OF ASCENDING COLON, ENDO, DIAGN (08/24/18) EXCISION OF DESCENDING COLON, ENDO, DIAGN (08/24/18) EXCISION OF STOMACH, ENDO, DIAGN (08/24/18) EXCISION OF TRANSVERSE COLON, ENDO, DIAGN (08/24/18) Family History: States: No Known Family Hx - Social History Hx Alcohol Use: Yes Hx Substance Use: No (DENIES) - Immunization History Hx Tetanus Toxoid Vaccination: No Hx Influenza Vaccination: No Hx Pneumococcal Vaccination: No Review Of Systems Review Of Systems: ROS cannot be obtained secondary to pt's inabilty to answer questions. Physical Exam - Physical Exam Appears: Non-toxic, No Acute Distress, Other (somnilent, arousable to stimuli) Skin: Warm, Dry Head: Atraumatic, Normacephalic Neck: Normal, Supple Chest: Symmetrical, No Tenderness Cardiovascular: Rhythm Regular, No Murmur Respiratory: Normal Breath Sounds, No Rales, No Rhonchi, No Wheezing Gastrointestinal/Abdominal: Soft, No Tenderness ED Course And Treatment - Laboratory Results Result Diagrams: 10/13/18 19:52 10/13/18 19:52 O2 Sat by Pulse Oximetry: 98 (RA) Pulse Ox Interpretation: Normal Medical Decision Making Medical Decision Making: Plan: Glucose POC Assessment: Drug ingestion alcohol abuse patient admits to alcohol and pcp use. He is now awake and ambulating in ED. Will discharge home to follow up with medical clinic within 2 days Disposition Counseled Patient/Family Regarding: Studies Performed, Diagnosis, Need For Followup - Disposition Referrals: [facility] [Outside] Disposition: HOME/ ROUTINE Disposition Time: 21:58 Condition: STABLE Additional Instructions: follow up with medical clinic within 2 days call to make an appointment return to ER if symptoms worsens or progress Instructions: Drug Abuse and Drug Addiction (DC), Alcohol Abuse and Alcoholism (DC) Forms: [employer] (Taiwanese), General Discharge Instructions - Clinical Impression Clinical Impression: Alcohol abuse, Drug abuse - Scribe Statement The provider has reviewed the documentation as recorded by the Scribe (Ranjit Prince) Provider Attestation: All medical record entries made by the Scribe were at my direction and personally dictated by me. I have reviewed the chart and agree that the record accurately reflects my personal performance of the history, physical exam, medical decision making, and the department course for this patient. I have also personally directed, reviewed, and agree with the discharge instructions and disposition.
[2018-10-13 20:06] LABS: SQUAMOUS EPITHIAL < 1 /hpf (0-5); URINE BILIRUBIN NEGATIVE (NEGATIVE); URINE BLOOD NEGATIVE (NEGATIVE); URINE CLARITY Clear (Clear); URINE COLOR Straw (YELLOW); URINE GLUCOSE (UA) NORMAL (Normal); URINE LEUKOCYTE ESTERASE NEG Leu/uL (Negative); URINE PROTEIN NEGATIVE (NEGATIVE); URINE UROBILINOGEN NORMAL mg/dL (0.2-1.0)
[2018-10-13 20:13] LABS: BASO % 0.4 % (0.0-2.0); EOS # 0.1 K/uL (0.0-0.7); EOS % 0.9 % (0.0-4.0); LYMPH # 2.1 K/uL (1.0-4.3); LYMPH % 27.3 % (20.0-40.0); MEAN CORPUSCULAR HEMOGLOBIN 22.3 pg (27.0-31.0); MEAN CORPUSCULAR HGB CONC 29.8 g/dL (33.0-37.0); MEAN PLATELET VOLUME 7.1 fL (7.2-11.7); MONO # 0.6 K/uL (0.0-0.8); MONO % 7.2 % (0.0-10.0); NEUT % 64.2 % (50.0-75.0); RBC 4.14 Mil/uL (4.40-5.90); RED CELL DISTRIBUTION WIDTH 17.5 % (11.5-14.5); WHITE BLOOD COUNT 7.9 K/uL (4.8-10.8)
[2018-10-13 20:15] LABS: HEMOGLOBIN 9.2 g/dL (12.0-18.0); MEAN CELL VOLUME 74.9 fL (80.0-94.0)
[2018-10-13 20:20] LABS: ALB/GLOB RATIO 1.1 (1.0-2.1); ALBUMIN 4.1 g/dL (3.5-5.0); ALT/SGPT 20 U/L (21-72); AST/SGOT 30 U/L (17-59); BLOOD UREA NITROGEN 13 mg/dL (9-20); CALCIUM 8.7 mg/dl (8.6-10.4); GFR NON-AFRICAN AMERICAN > 60
[2018-10-13 20:21] LABS: BARBITURATES, UR NEGATIVE (NEGATIVE); BENZODIAZEPINES, UR NEGATIVE (NEGATIVE); OPIATES, UR NEGATIVE (NEGATIVE)
[2018-10-13 20:26] VITALS: PULSE 100
[2018-10-13 20:27] LABS: PHENCYCLIDINE, UR POSITIVE (NEGATIVE)
[2018-10-13 21:21] VITALS: BP 102/46; RESP 20; O2SAT 98
== END 2018-10-13 22:25 | disposition home or self-care (01) ==
LOC: C.ER 18:37
DX: F19.10 Other psychoactive substance abuse, uncomplicated (principal); F10.10 Alcohol abuse, uncomplicated; Y90.6 Blood alcohol level of 120-199 mg/100 ml; I10 Essential (primary) hypertension; Z87.891 Personal history of nicotine dependence